=== PATIENT | female | born 1955 | race Caucasian/White ===

== ENCOUNTER → 2018-12-01 | Outpatient (CLI) | payer OTHER ==
--- NOTE | 2018-12-08 15:12 | KCIC ---
BILATERAL SCREENING MAMMOGRAM, 3-D History: Routine screening. Comparison: Bilateral mammogram March 27, 2018, [facility]. Technique: MLO and CC digital tomosynthesis (3D) images obtained. Radiologist reviewed these images on dedicated workstation. Findings: Breast Tissue Density C : The breasts are heterogeneously dense, which may obscure small masses. Redemonstrated biopsy clip upper outer right breast at mid depth. Stable intramammary lymph nodes in the lower right breast. There are no dominant suspicious masses, suspicious microcalcifications, or architectural distortion. IMPRESSION: No mammographic evidence of malignancy. Recommend routine screening. BI-RADS category 2: Benign findings. The images were reviewed with computer-aided detection. Patient information is entered into reminder system with a target due date for the next screening mammogram. Mammography is the most sensitive method for finding small breast cancers, but it does not detect them all and is not a substitute for careful clinical examination. A negative mammogram does not negate a clinically suspicious finding and should not result in delay in biopsying a clinically suspicious abnormality. "Our facility is accredited by the [employer] Mammography [employer]." Electronically signed by: David Cazares MD (12/03/2018 4:35 PM) [facility]
== END | disposition home or self-care (01) ==
LOC: KCIC MAMMO 14:43
DX: Z12.31 Encounter for screening mammogram for malignant neoplasm of breast (principal)
CPT/HCPCS: 77063; 77067

== ENCOUNTER → 2019-07-28 | Outpatient (CLI) | payer OTHER ==
--- NOTE | 2019-07-28 14:12 | KCIC ---
EXAM: Left breast diagnostic mammogram with tomosynthesis; left breast sonogram. HISTORY: 64-year-old female presents with left breast pain. The patient reports no focal palpable lump. TECHNIQUE: Full-field digital craniocaudal and mediolateral oblique 2D and 3D tomosynthesis images of the left breast are obtained for evaluation. Computer aided detection with [employer] software version 9.3 was applied. Sonographic imaging of the left breast targeted to the site of reported pain was also performed. COMPARISON: 12/01/2018 and 03/27/2018 BREAST PARENCHYMAL DENSITY: Level C - Heterogeneously dense. FINDINGS: There is no new suspicious mass, microcalcification or region of architectural distortion. There is stable areas of nodularity and asymmetry within the left breast, allowing for differences in patient positioning and imaging technique. Sonographic imaging of the left breast demonstrates no suspicious finding. There is no suspicious correlate for areas of mammographic nodularity. IMPRESSION: 1. No new suspicious mammographic finding. 2. No suspicious sonographic finding. 3. BI-RADS Category 2: Benign finding(s). Bilateral mammography in 4 months is recommended to correspond with the previously established bilateral mammography interval. If your mammogram demonstrates that you have dense breast tissue, which could hide abnormalities, and if you have other risk factors for breast cancer that have been identified, you might benefit from supplemental screening tests that may be suggested by your ordering physician. Dense breast tissue, in and of itself, is a relatively common condition. This information is not provided to cause undue concern, but rather to raise your awareness and to promote discussion with your physician regarding the presence of other risk factors, in addition to dense breast tissue. A report of your mammography results will be sent to you and your physician. You should contact your physician if you have any questions or concerns regarding this report. Mammography is a sensitive method for finding small breast cancers, but it does not detect them all and is not a substitute for careful clinical examination. A negative mammogram does not negate a clinically suspicious finding and should not result in delay in biopsying a clinically suspicious abnormality. PQRS compliance statement - Patient information was entered into a reminder system with a target due date for the next mammogram. "Our facility is accredited by the [employer] Mammography [employer]." Electronically signed by: Nelda Cadena MD (07/28/2019 2:09 PM) [facility]
== END | disposition home or self-care (01) ==
LOC: KCIC MAMMO 13:10
PROVIDERS: ATTEND Obstetrics & Gynecology
DX: N64.4 Mastodynia (principal)
CPT/HCPCS: 76641; 77065; G0279; 77061

== ENCOUNTER 2019-09-17 10:25 | Day surgery (SDC) | payer OTHER ==
[~2019-09-17] VITALS: Ht 162.6 cm; Wt 78.0 kg
[~2019-09-17 10:25] MED LIST: BUPIVACAINE-EPI 0.5%-1:200000 MPF 30 ML VIAL. INJ ONE; HEPARIN 1,000 UNIT in IV NORMAL SALINE 1,000 ML for SURG PERIOP IRR ONE; HYDROmorphone 2 MG/ML VIAL IV PRN; IBUPROFEN 200 MG TABLET. PO PRN; IV RINGERS,LACTATED 1000ML 1,000 ML IV SCH; LIDOCAINE 1% PF 2 ML VIAL. ID PRN; LIDOCAINE 2% PF 5 ML VIAL. ONE; LOSA25TA PO; MORPHINE SULFATE 2 MG/ML VIAL. IV PRN; ONDANSETRON PF 4 MG/2 ML VIAL. IV PRN; PANT20TA2 PO; PROCHLORPERAZINE 10 MG/2 ML VIAL. IV PRN; PROPOFOL 20 ML IV ONE; ROCURONIUM 50 MG/5 ML VIAL. ONE; fentaNYL PF VIAL 100 MCG/2 ML VIAL IV PRN
[2019-09-17] MEDS ORDERED: fentaNYL PF VIAL 100 MCG/2 ML VIAL ONE ×2 (11:14→14:08)
[2019-09-17] MEDS ORDERED: SURGICEL HEMOSTAT 2X3 EACH. ONE (11:39)
[2019-09-17] MEDS ORDERED: BISACODYL 10 MG SUPP.RECT. ONE (11:39)
[2019-09-17] MEDS ORDERED: IOHEXOL 300 MG/ML 50 ML VIAL. ONE (11:39)
[2019-09-17] MEDS ORDERED: ceFAZolin 2GM PREMIX 2 GM/50 ML BAG IV ONE (12:00)
--- NOTE | 2019-09-17 12:10 | PDOC ---
SURGICAL PROGRESS NOTE Subjective 64 yo F with calculous cholecystitis, hemangioma TO OR for laparoscopic versus open cholecystectomy with cholangiogram, liver biopsy R/R/B/A d/w pt. Risks, including, but not limited to: bleeding, infection, damage to surrounding structures, risk of anesthesia, risk of open, risk of . She appears to understand, her questions are answered and she elects to proceed. Office note H&p reviewed and unchanged. Vital Signs Vital Signs Date Time Temp Pulse Resp B/P (MAP) Pulse Ox O2 Delivery O2 Flow Rate FiO2 09/17/19 11:01 98.2 102 166/81 98.2 09/17/19 10:56 18 DAVID POLLOCK MD Sep 17, 2019 12:10
[2019-09-17] MEDS ORDERED: MIDAZOLAM HCL/PF 2 MG/2 ML VIAL. ONE (12:15)
[2019-09-17] MEDS ORDERED: KETAMINE HCL IN NACL, ISO-OSM 50 MG/5 ML SYRINGE ONE (12:26)
[2019-09-17] MEDS ORDERED: PHENYLEPHRINE in 0.9% NACL PF 1 MG/10 ML SYRINGE. IV ONE (12:47)
[2019-09-17] MEDS ORDERED: NEOSTIGMINE METHYLSULFATE 5 MG/5 ML SYRINGE. ONE (12:47)
[2019-09-17] MEDS ORDERED: GLYCOPYRROLATE 1 MG/5 ML VIAL. ONE (12:48)
[2019-09-17] MEDS ORDERED: ONDANSETRON PF 4 MG/2 ML VIAL. ONE (13:07)
[2019-09-17] MEDS ORDERED: KETOROLAC 30 MG/ML VIAL. ONE (13:09)
[2019-09-17] MEDS ORDERED: SEVOFLURANE 61 TO 120 MINUTES. IH ONE (13:20)
--- NOTE | 2019-09-17 13:20 | RAD ---
CHOLANGIOGRAM INTRAOPERATIVE History: Intraoperative cholangiogram done with C-arm Comparison: None. Technique/findings: 23.8 seconds fluoroscopy time. 2-D images are obtained. Intraoperative cholangiogram contrast opacifies the intrahepatic bile ducts. Contrast opacifies the common bile duct and small bowel. No stricture or obstruction on anterior posterior view. No common bile duct injury on anterior posterior view. Prominent common bile duct. Impression: 1. Fluoroscopy provided for intraoperative cholangiogram. Prominent common bile duct. Electronically signed by: Rosendo Huang DO (09/17/2019 1:17 PM) [facility]
[2019-09-17] MEDS ORDERED: IV NORMAL SALINE 1000ML BAG 1,000 ML IV SCH (13:31)
--- NOTE | 2019-09-17 13:43 | PDOC4 ---
OPERATIVE NOTE Date: Date: Sep 17, 2019 Pre-Op Diagnosis: Calculous cholecystitis Post-Op Diagnosis: same Procedure Performed: Laparoscopic cholecystectomy with cholangiogram Surgeon: Juan Pollock Anesthesia Type: GETA plus local Blood Loss: 50 Specimans Obtained: gallbladder Findings: chronic changes of gallbladder, small hemangioma of liver (resected with gallbladder), prominent bile duct Complications: none Operative Note: After obtaining informed consent, patient was taken to OR, induced under GETA and prepped in the usual fashion. 5 mm port placed umbilical and RUQ, 12 port placed epigastric, all under laparoscopic guidance. Abdominal cavity was explored and otherwise unremarkable. Gallbladder was indurated and friable. D rainage of gallbladder demonstrated thick bile. Gallbladder taken off fossa sharply using cautery. A small hemangioma was noted adjacent to the tip of the gallbladder and included in the resection. Cystic arteries, anterior and posterior, divided by clips. Cholangiogram was obtained via cystic duct. This demonstrated a prominent common bile duct, but free extravasation and no stone. Cystic duct ligated with clips and hemolok. Gallbladder placed in bag, delivered and sent to pathology for evaluation. Copious irrigation. No evidence of bleeding or other pathology. Ports removed without bleeding. Fascia repaired with 0 vicryl. Skin repaired with 4 0 monocryl. Dressing placed. Patient tolerated procedure well and sent to PACU in stable condition. All counts correct. Wound class is 2. DAVID POLLOCK MD Sep 17, 2019 13:43
[2019-09-17] MEDS ORDERED: 0.9 % SODIUM CHLORIDE 10 ML DISP.SYRIN. IV PRN (13:45)
[2019-09-17] MEDS ORDERED: HYDROcodone/APAP 5/325MG 1 TAB TABLET PO PRN (13:45)
[2019-09-17] MEDS ORDERED: DEXTROSE 50% 25 GM / 50ML DISP.SYRIN. IV PRN (13:45)
[2019-09-17] MEDS ORDERED: NALOXONE 0.4 MG/ML VIAL. IV PRN (13:45)
[2019-09-17] MEDS ORDERED: ONDANSETRON PF 4 MG/2 ML VIAL. IV PRN (13:45)
[2019-09-17] MEDS ORDERED: PROCHLORPERAZINE 10 MG/2 ML VIAL. ONE (14:08)
[2019-09-17 15:32] VITALS: BP 107/66
[2019-09-17] MEDS ORDERED: HYDR-3164 PO (15:39)
[2019-09-17] MEDS ORDERED: DOCU-109 PO (15:40)
[2019-09-17] MEDS ORDERED: DOCUSATE SODIUM 100 MG CAPSULE. PO SCH (21:00)
--- NOTE | 2019-09-21 23:06 | PATHOLOGY ---
[facility] Accession Number: [id number] . 01 Material submitted: . gallbladder - GALLBLADDER AND CONTENTS . 01 Clinical history: . Gallstones . 02 Diagnosis: "Gallbladder and contents", cholecystectomy: - Acute on chronic cholecystitis. - Cholelithiasis. - Lymph node with hyperplasia. - Scant attached liver with reactive changes. (CLW:roxy; 09/21/2019) MBR 09/21/2019 1037 Local . 02 Electronically signed: . Shira Gomes MD, Pathologist NPI- [id number] . 01 Gross description: . Received in formalin labeled "Sarkisyants, Eileen, gallbladder and contents," is an intact galbladder measuring 10.2 x 2.9 x 2.8 cm in greatest dimensions. The serosal surface is wrinkled to shaggy and dusky middleton-pina in appearance, displaying diffuse foci of hemorrhage and scant attached adipose tissue. A 1.1 x 0.9 x 0.5 cm segment of pina-brown possible liver tissue is attached at the fundal aspect of the hepatic bed. A middleton-pina possible lymph node is noted near the infundibulum, measuring 0.8 x 0.6 x 0.5 cm. Also noted in the hepatic surface is a defect measuring 0.8 x 0.5 cm that extends to within 7.0 cm of the infundibulum. Opening the specimen reveals a smooth, pale pina mucosa at the infundibulum, with irregularly contoured, granular and pina-brown mucosa in the rest of the gallbladder lumen. The mucosa measures 0.1 cm in thickness, with a gallbladder wall thickness of up to 0.5 cm including attached adipose tissue. The gallbladder lumen is firmly packed with dark brown tenacious bile and intact to fragmented multifaceted, yellow-brown calculi ranging from 0.6 to 2.0 cm in maximum dimension. No polyps or nodules are identified grossly. Serial sectioning through the possible liver tissue reveals firm, dark pina-brown cut surfaces. Sectioning through the possible lymph node reveals firm, dark pina-brown cut surfaces. The specimen is submitted representatively as follows: . A1: Represent a gallbladder infundibulum, body and fundus, to representatively include the hepatic surface defect A2: Entire possible liver segment, serially sectioned A3: Entire possible lymph node, trisected (DAC; 09/18/2019) XDC/XDC 09/21/2019 1036 Local . 02 Pathologist provided ICD-10: K80.12 . 02 CPT . 767798 Specimen Comment: A courtesy copy of this report has been sent to [phone], [phone] Specimen Comment: [id number] Specimen Comment: Report sent to / DR BRADSHAW Performed at: 01 [facility] [place] [address], [place], [place] [id number] MD Cuauhtemoc Escamilla MD Phone: [phone] Performed at: 02 [facility] [address], [place] [id number] MD James Rondon MD Phone: [phone]
== END 2019-09-17 16:28 | disposition home or self-care (01) ==
LOC: SURG 10:25
PROVIDERS: ATTEND Surgery
DX: K80.10 Calculus of gallbladder with chronic cholecystitis without obstruction (principal); D18.09 Hemangioma of other sites; Z79.899 Other long term (current) drug therapy
CPT/HCPCS: 47563; 74300; A7015; J0696; J0780; J1644; J1885; J2001; J2250; J2370; J2405; J2704; J2710; J3010; J3490; J7030; Q9967